=== PATIENT | female | born 1995 | race Caucasian/White ===

== ENCOUNTER 2018-01-27 21:58 | Emergency (ER) | payer OTHER ==
[~2018-01-27] VITALS: Ht 162.6 cm; Wt 48.1 kg
--- NOTE | 2018-01-27 22:06 | ER Report ---
History and Physical Time Seen By MD: 22:05 HPI/ROS CHIEF COMPLAINT: Fever, body aches HISTORY OF PRESENT ILLNESS: 22-year-old female presents to the ER with fever and bodyaches for approximately 36 hours. She notes no rhinitis, she notes a mild headache but no photophobia or stiff neck. She notes nausea but no vomiting. She's had no dysuria. She denies exposure to ill contacts. She's not had a cough. She notes some right upper quadrant and back pain. REVIEW OF SYSTEMS: Respiratory: No cough, no dyspnea. Cardiovascular: No chest pain, no palpitations. Gastrointestinal: No vomiting, no abdominal pain. Musculoskeletal: No back pain. Allergies: Coded Allergies: amoxicillin (Verified Adverse Reaction, Severe, RASH, 01/27/18) Home Meds Active Scripts Oxycodone Hcl/Acetaminophen (PERCOCET 5-325 MG TABLET) 1 Each Tablet, 1 EACH PO Q4-6H Y for pain or cough suppression, #10 Prov:ADINA LAROSE DO 01/27/18 Promethazine Hcl (PROMETHAZINE HCL) 25 Mg Tablet, 25 MG PO Q4H Y for NAUSEA/ VOMITING, #14 TAB Prov:ADINA LAROSE DO 01/27/18 Nitrofurantoin Monohyd/M-Cryst (MACROBID 100 MG CAPSULE) 100 Mg Capsule, 100 MG PO BID for infection, #14 CAPSULE Prov:ADINA LAROSE DO 01/27/18 Reported Medications Fluconazole (DIFLUCAN) 150 Mg Tablet, 150 MG PO QDAY 01/27/18 Metronidazole (FLAGYL) 500 Mg Tablet, 500 MG PO, TAB 01/27/18 Reviewed Nurses Notes: Yes Old Medical Records Reviewed: Yes Constitutional Vital Sign - Last 24 Hours 01/27/18 01/27/18 01/27/18 01/27/18 22:03 22:15 22:30 22:33 Temp 100.6 Pulse 134 117 ??? Resp 16 B/P (MAP) 128/78 107/64 (78) Pulse Ox 96 97 O2 Delivery Room Air 01/27/18 01/27/18 22:45 23:00 Pulse 108 106 B/P (MAP) 115/63 (80) Pulse Ox 94 93 Physical Exam Vital signs stable, moderate tachycardia to 134, fever 100.7, pulse ox normal General Appearance: The patient is alert, has no immediate need for airway protection and no current signs of toxicity. Slightly pale appearing, skin warm and dry HEENT: Pupils equal and round no injection.-Photophobia, TMs normal, oropharynx with mild erythema, no exudate, mild tonsillar hypertrophy Respiratory: Chest is non tender, lungs are clear to auscultation. No wheezing or rails Cardiac: regular rate and rhythm Gastrointestinal: Abdomen is soft and non tender, no masses, bowel sounds normal. Musculoskeletal: Neck: Neck is supple and non tender. No meningismus Extremities have full range of motion and are non tender. Skin: No rashes or lesions. DIFFERENTIAL DIAGNOSIS: After history and physical exam differential diagnosis was considered for adult fever including but not limited to viral syndromes including influenza, urinary tract infection, pneumonia and sepsis. Medical Decision Making Data Points Laboratory Hematology Test 01/27/18 22:15 01/27/18 22:34 Urine HCG, Qualitative Negative (NEGATIVE) Influenza Virus Type A (PCR) Negative (NEGATIVE) Influenza Virus Type B (PCR) Negative (NEGATIVE) Group A Streptococcus Screen Negative (NEGATIVE) Urine Color Yellow Urine Clarity Clear Urine pH 6.0 pH (4.8-9.5) Urine Specific [place] 1.010 Urine Protein Negative mg/dL (NEGATIVE) Urine Glucose (UA) Negative mg/dL (NEGATIVE) Urine Ketones Negative mg/dL (NEGATIVE) Urine Blood Small (NEGATIVE) Urine Nitrite Negative (NEGATIVE) Urine Bilirubin Negative (NEGATIVE) Urine Urobilinogen Negative mg/dL (0.2-1.9) Urine Leukocyte Esterase Trace (NEGATIVE) Urine RBC 1 /HPF (0-2/HPF) Urine WBC 17 /HPF (0-5/HPF) Urine Squamous Epithelial Cells Many /LPF (</=FEW) Urine Bacteria Few /HPF (NONE-FEW) Urine Mucus Few /HPF (NONE-FEW) Chemistry Test 01/27/18 22:15 2 22:34 Urine HCG, Qualitative Negative (NEGATIVE) Influenza Virus Type A (PCR) Negative (NEGATIVE) Influenza Virus Type B (PCR) Negative (NEGATIVE) Group A Streptococcus Screen Negative (NEGATIVE) Urine Color Yellow Urine Clarity Clear Urine pH 6.0 pH (4.8-9.5) Urine Specific [place] 1.010 Urine Protein Negative mg/dL (NEGATIVE) Urine Glucose (UA) Negative mg/dL (NEGATIVE) Urine Ketones Negative mg/dL (NEGATIVE) Urine Blood Small (NEGATIVE) Urine Nitrite Negative (NEGATIVE) Urine Bilirubin Negative (NEGATIVE) Urine Urobilinogen Negative mg/dL (0.2-1.9) Urine Leukocyte Esterase Trace (NEGATIVE) Urine RBC 1 /HPF (0-2/HPF) Urine WBC 17 /HPF (0-5/HPF) Urine Squamous Epithelial Cells Many /LPF (</=FEW) Urine Bacteria Few /HPF (NONE-FEW) Urine Mucus Few /HPF (NONE-FEW) Urinalysis Test 01/27/18 22:15 01/27/18 22:34 Urine HCG, Qualitative Negative (NEGATIVE) Urine Color Yellow Urine Clarity Clear Urine pH 6.0 pH (4.8-9.5) Urine Specific [place] 1.010 Urine Protein Negative mg/dL (NEGATIVE) Urine Glucose (UA) Negative mg/dL (NEGATIVE) Urine Ketones Negative mg/dL (NEGATIVE) Urine Blood Small (NEGATIVE) Urine Nitrite Negative (NEGATIVE) Urine Bilirubin Negative (NEGATIVE) Urine Urobilinogen Negative mg/dL (0.2-1.9) Urine Leukocyte Esterase Trace (NEGATIVE) Urine RBC 1 /HPF (0-2/HPF) Urine WBC 17 /HPF (0-5/HPF) Urine Squamous Epithelial Cells Many /LPF (</=FEW) Urine Bacteria Few /HPF (NONE-FEW) Urine Mucus Few /HPF (NONE-FEW) ED Course/Re-evaluation ED Course Patient was admitted to an examination room. H&P was done. The dental diagnoses was considered. Patient with a fever. She was was evaluated with a rapid strep which was negative, rapid influenza, which is negative. A urinalysis which showed subtle infection. A urinary cultures ordered. She'll be covered with Macrobid for urinary tract infection. She's given Phenergan and Percocet for symptomatically relief so she can sleep and rest. She is advised to continue ibuprofen 600 mg 3 times daily. Patient advised to follow- up with primary care if unimproved in 2-3 days. Decision to Disposition Date: Jan 27, 2018 Decision to Disposition Time: 23:09 Depart Departure Latest Vital Signs Vital Signs Date Time Temp Pulse Resp B/P (MAP) Pulse Ox O2 Delivery O2 Flow Rate FiO2 01/27/18 23:00 106 115/63 (80) 93 01/27/18 22:03 100.6 16 Room Air Impression: Primary Impression: Fever Additional Impressions: Viral syndrome UTI (urinary tract infection) Condition: Improved Disposition: HOME OR SELF-CARE Referrals: DORIE GARCIA MD New Scripts Oxycodone Hcl/Acetaminophen (PERCOCET 5-325 MG TABLET) 1 Each Tablet 1 EACH PO Q4-6H Y for pain or cough suppression, #10 Prov: ADINA LAROSE DO 01/27/18 Promethazine Hcl (PROMETHAZINE HCL) 25 Mg Tablet 25 MG PO Q4H Y for NAUSEA/VOMITING, #14 TAB Prov: ADINA LAROSE DO 01/27/18 Nitrofurantoin Monohyd/M-Cryst (MACROBID 100 MG CAPSULE) 100 Mg Capsule 100 MG PO BID for infection, #14 CAPSULE Prov: ADINA LAROSE DO 01/27/18 Patient Instructions: Urinary Tract Infection in Women (ED), Viral Syndrome (ED ) Additional Instructions: Take ibuprofen 200 mg 3 tablets with food alternating with Tylenol 650 mg to control fever and body aches Drink plenty of fluids Follow-up with your primary care provider if unimproved in 3-5 days Problem Qualifiers Primary Impression: Fever Fever type: unspecified Qualified Codes: R50.9 - Fever, unspecified Additional Impressions: UTI (urinary tract infection) Urinary tract infection type: acute cystitis Hematuria presence: without hematuria Qualified Codes: N30.00 - Acute cystitis without hematuria ADINA LAROSE DO Jan 27, 2018 22:06
[2018-01-27] MEDS ORDERED: METR-1 PO (22:12)
[2018-01-27] MEDS ORDERED: FLUC150T40 PO (22:14)
[2018-01-27] MEDS ORDERED: IBUPROFEN 600 MG TAB PO ONE (22:15)
[2018-01-27] MEDS ORDERED: PROMETHAZINE HCL 25 MG TAB PO ONE (22:15)
[2018-01-27] MEDS ORDERED: ONDANSETRON 4 MG ODT TABDP SL ONE (22:15)
[2018-01-27 23:00] VITALS: BP 115/63
[2018-01-27] MEDS ORDERED: PROMETHAZINE HCL 25 MG TAB TH 2 TAB/BOTTLE PO ONE (23:05)
[2018-01-27] MEDS ORDERED: NITROFURANTOIN MONO 100 MG PO ONE (23:05)
[2018-01-27] MEDS ORDERED: NITR-105 PO (23:14)
[2018-01-27] MEDS ORDERED: PROM-110 PO (23:14)
[2018-01-27] MEDS ORDERED: OXYC-865 PO (23:14)
[2018-01-28] MEDS ORDERED: CIPR-214 PO (20:49)
== END 2018-01-27 23:30 | disposition home or self-care (01) ==
LOC: ER 22:21
DX: N30.00 Acute cystitis without hematuria (principal); B34.9 Viral infection, unspecified
CPT/HCPCS: 81001; 81025; 87081; 87088; 87502; 87880; 99283; Q0169; S0119

== ENCOUNTER 2018-01-28 17:12 | Emergency (ER) | payer OTHER ==
[~2018-01-28 17:12] MED LIST: FLUC150T40 PO; METR-1 PO; NITR-105 PO; OXYC-865 PO; PROM-110 PO
--- NOTE | 2018-01-28 17:20 | ER Report ---
History and Physical Time Seen By MD: 17:19 HPI/ROS CHIEF COMPLAINT: Right lower quadrant pain HISTORY OF PRESENT ILLNESS: This is a 22-year-old female who presents to the emergency department for right lower quadrant pain and overall ill feeling. Was seen in the emergency department last night and sent home with antibiotics for a urinary tract infection. Patient states that throughout today she's had no relief of symptoms and has felt some increased right lower quadrant pain radiating into her back. Patient has had nausea and vomiting. Patient also states that yesterday she had some chest pain and shortness of breath and that has been intermittent throughout yesterday and today. Patient does have aches and chills, no headaches, no rashes. REVIEW OF SYSTEMS: Constitutional: No fever, no chills. Eyes: No discharge. ENT: No sore throat. Cardiovascular: As above. Respiratory: As above. Gastrointestinal: As above. Genitourinary: No hematuria. Musculoskeletal: No back pain. Skin: No rashes. Neurological: No headache. Allergies: Coded Allergies: amoxicillin (Verified Adverse Reaction, Severe, RASH, 01/27/18) Home Meds Active Scripts Ciprofloxacin Hcl (CIPROFLOXACIN HCL) 500 Mg Tablet, 500 MG PO Q12H, #14 TAB Prov:RAMSEY GAMBLE DIABETOLOGIST- 01/28/18 Oxycodone Hcl/Acetaminophen (PERCOCET 5-325 MG TABLET) 1 Each Tablet, 1 EACH PO Q4-6H Y for pain or cough suppression, #10 Prov:ADINA LAROSE DO 01/27/18 Promethazine Hcl (PROMETHAZINE HCL) 25 Mg Tablet, 25 MG PO Q4H Y for NAUSEA/ VOMITING, #14 TAB Prov:ADINA LAROSE DO 01/27/18 Nitrofurantoin Monohyd/M-Cryst (MACROBID 100 MG CAPSULE) 100 Mg Capsule, 100 MG PO BID for infection, #14 CAPSULE Prov:ADINA LAROSE DO 01/27/18 Reported Medications Fluconazole (DIFLUCAN) 150 Mg Tablet, 150 MG PO QDAY 01/27/18 Metronidazole (FLAGYL) 500 Mg Tablet, 500 MG PO, TAB 01/27/18 Past Medical/Surgical History She has a past medical and surgical history of migraines, wears glasses, anxiety , depression, kidney reflux. Reviewed Nurses Notes: Yes Constitutional Vital Sign - Last 24 Hours 01/28/18 01/28/18 01/28/18 01/28/18 17:23 17:27 17:29 17:30 Temp 98.3 Pulse 139 122 Resp 13 20 B/P (MAP) 114/64 (81) 105/68 105/68 (80) Pulse Ox 94 95 01/28/18 01/28/18 01/28/18 01/28/18 17:42 17:57 18:00 18:21 Pulse 120 120 Resp 15 8 B/P (MAP) 97/49 (65) 103/60 (74) Pulse Ox 100 97 01/28/18 01/28/18 01/28/18 01/28/18 18:27 18:32 18:37 18:42 Pulse 117 113 109 107 Resp 22 14 24 15 Pulse Ox 96 96 95 95 01/28/18 01/28/18 01/28/18 01/28/18 18:47 18:52 18:57 19:00 Pulse 110 116 112 Resp 14 11 B/P (MAP) 94/55 (68) Pulse Ox 95 95 93 01/28/18 01/28/18 01/28/18 01/28/18 19:02 19:07 19:12 19:17 Pulse 111 108 111 114 Resp 14 16 9 16 Pulse Ox 94 95 95 97 01/28/18 01/28/18 01/28/18 01/28/18 19:22 19:27 19:30 19:32 Pulse 112 110 122 Resp 23 20 10 B/P (MAP) 98/57 (71) Pulse Ox 96 96 95 01/28/18 01/28/18 01/28/18 01/28/18 19:33 19:34 19:34 19:39 Temp 102.5 Pulse 110 Resp 10 B/P (MAP) 97/60 (72) 97/59 (72) Pulse Ox 96 01/28/18 01/28/18 01/28/18 01/28/18 19:44 19:49 19:54 19:59 Pulse ? 01/28/18 01/28/18 01/28/18 01/28/18 20:04 20:09 20:14 20:19 Pulse 107 105 110 107 Resp 17 35 16 18 Pulse Ox 96 95 96 95 01/28/18 01/28/18 01/28/18 2/28/18 20:24 20:29 20:30 20:34 Pulse 107 109 106 Resp 18 8 11 B/P (MAP) 99/53 (68) Pulse Ox 97 97 96 01/28/18 01/28/18 01/28/18 01/28/18 20:39 20:44 20:49 20:50 Temp 101.2 Pulse 108 111 125 Resp 20 15 Pulse Ox 96 95 01/28/18 01/28/18 20:54 21:00 Temp 98.7 Pulse 101 Resp 10 Pulse Ox 96 Intake and Output 01/28/18 01/28/18 01/29/18 15:00 23:00 07:00 Intake Total 2000 ml Balance 2000 ml Physical Exam General Appearance: The patient is alert, has no immediate need for airway protection and no signs of toxicity, pale, anxious and tearful. Eyes: Pupils equal and round no pallor or injection. ENT, Mouth: Mucous membranes are moist. Respiratory: There are no retractions, lungs are clear to auscultation. Cardiovascular: Pounding, regular rate and rhythm, no murmurs, clicks or rubs. Gastrointestinal: Abdomen is soft and tenderness to McBurney's point with rebound tenderness, no masses, hypoactive bowel sounds. Neurological: Alert and oriented 4. Moving all extremities. No focal neuro deficits. Following all commands. Skin: Warm and dry, no rashes. Musculoskeletal: Neck is supple non tender. Extremities are nontender, nonswollen and have full range of motion. DIFFERENTIAL DIAGNOSIS: After history and physical exam differential diagnosis was considered for abdominal pain in a female including but not limited to ovarian cyst, pelvic inflammatory disease, ovarian torsion, urinary tract infection, and appendicitis. shortness of breath including but not limited to pulmonary infectious process, COPD, asthma, pulmonary embolus and congestive heart failure. Medical Decision Making Data Points Result Diagram: 01/28/18 1740 01/28/18 1740 Laboratory Hematology Test 01/28/18 17:20 01/28/18 17:40 Urine Color Yellow Urine Clarity Cloudy Urine pH 5.0 pH (4.8-9.5) Urine Specific [place] 1.020 Urine Protein 100 mg/dL (NEGATIVE) Urine Glucose (UA) Negative mg/dL (NEGATIVE) Urine Ketones Trace mg/dL (NEGATIVE) Urine Blood Small (NEGATIVE) Urine Nitrite Negative (NEGATIVE) Urine Bilirubin Negative (NEGATIVE) Urine Urobilinogen Negative mg/dL (0.2-1.9) Urine Leukocyte Esterase Negative (NEGATIVE) Urine RBC 13 /HPF (0-2/HPF) Urine WBC 18 /HPF (0-5/HPF) Urine Squamous Epithelial Cells Many /LPF (</=FEW) Urine Transitional Epithelial Cells Moderate /LPF (NONE-FEW) Urine Bacteria Few /HPF (NONE-FEW) Urine Mucus Few /HPF (NONE-FEW) Urine HCG, Qualitative Negative (NEGATIVE) Red Blood Count 4.85 M/uL (4.17-5.56) Mean Corpuscular Volume 86.5 fL (80.0-96.0) Mean Corpuscular Hemoglobin 30.2 pg (26.0-33.0) Mean Corpuscular Hemoglobin Concent 34.9 g/dL (32.0-36.0) Red Cell Distribution Width 12.5 % (11.5-14.5) Mean Platelet Volume 8.7 fL (7.2-11.1) Neutrophils (%) (Auto) 92.4 % (39.4-72.5) Lymphocytes (%) (Auto) 5.1 % (17.6-49.6) Monocytes (%) (Auto) 2.3 % (4.1-12.4) Eosinophils (%) (Auto) 0.0 % (0.4-6.7) Basophils (%) (Auto) 0.2 % (0.3-1.4) Nucleated RBC Relative Count (auto) 0.4 /100WBC Neutrophils # (Auto) 12.1 K/uL (2.0-7.4) Lymphocytes # (Auto) 0.7 K/uL (1.3-3.6) Monocytes # (Auto) 0.3 K/uL (0.3-1.0) Eosinophils # (Auto) 0.0 K/uL (0.0-0.5) Basophils # (Auto) 0.0 K/uL (0.0-0.1) Nucleated RBC Absolute Count (auto) 0.05 K/uL D-Dimer Quantitative (PE/DVT) 2.59 ug/ml (0-0.50) Sodium Level 135 mmol/L (137-145) Potassium Level 3.4 mmol/L (3.5-5.0) Chloride Level 104 mmol/L (98-107) Carbon Dioxide Level 18 mmol/L (22-31) Blood Urea Nitrogen 6 mg/dl (7-18) Creatinine 0.90 mg/dl (0.52-1.04) Glomerular Filtration Rate Calc > 60.0 Random Glucose 120 mg/dl (75-110) Lactate 2.4 mmol/L (0.7-2.1) Calcium Level 8.7 mg/dl (8.4-10.2) Total Bilirubin 0.6 mg/dl (0.2-1.3) Aspartate Amino Transf (AST/SGOT) 16 U/L (0-35) Alanine Aminotransferase (ALT/SGPT) 24 U/L (0-56) Alkaline Phosphatase 52 U/L (0-126) Total Protein 7.4 gm/dl (6.3-8.2) Albumin 3.7 g/dl (3.5-5.0) Chemistry Test 01/28/18 17:20 01/28/18 17:40 Urine Color Yellow Urine Clarity Cloudy Urine pH 5.0 pH (4.8-9.5) Urine Specific [place] 1.020 Urine Protein 100 mg/dL (NEGATIVE) Urine Glucose (UA) Negative mg/dL (NEGATIVE) Urine Ketones Trace mg/dL (NEGATIVE) Urine Blood Small (NEGATIVE) Urine Nitrite Negative (NEGATIVE) Urine Bilirubin Negative (NEGATIVE) Urine Urobilinogen Negative mg/dL (0.2-1.9) Urine Leukocyte Esterase Negative (NEGATIVE) Urine RBC 13 /HPF (0-2/HPF) Urine WBC 18 /HPF (0-5/HPF) Urine Squamous Epithelial Cells Many /LPF (</=FEW) Urine Transitional Epithelial Cells Moderate /LPF (NONE-FEW) Urine Bacteria Few /HPF (NONE-FEW) Urine Mucus Few /HPF (NONE-FEW) Urine HCG, Qualitative Negative (NEGATIVE) White Blood Count 13.1 k/uL (4.5-11.0) Red Blood Count 4.85 M/uL (4.17-5.56) Hemoglobin 14.6 g/dL (12.0-16.0) Hematocrit 41.9 % (34.0-47.0) Mean Corpuscular Volume 86.5 fL (80.0-96.0) Mean Corpuscular Hemoglobin 30.2 pg (26.0-33.0) Mean Corpuscular Hemoglobin Concent 34.9 g/dL (32.0-36.0) Red Cell Distribution Width 12.5 % (11.5-14.5) Platelet Count 175 K/uL (150-450) Mean Platelet Volume 8.7 fL (7.2-11.1) Neutrophils (%) (Auto) 92.4 % (39.4-72.5) Lymphocytes (%) (Auto) 5.1 % (17.6-49.6) Monocytes (%) (Auto) 2.3 % (4.1-12.4) Eosinophils (%) (Auto) 0.0 % (0.4-6.7) Basophils (%) (Auto) 0.2 % (0.3-1.4) Nucleated RBC Relative Count (auto) 0.4 /100WBC Neutrophils # (Auto) 12.1 K/uL (2.0-7.4) Lymphocytes # (Auto) 0.7 K/uL (1.3-3.6) Monocytes # (Auto) 0.3 K/uL (0.3-1.0) Eosinophils # (Auto) 0.0 K/uL (0.0-0.5) Basophils # (Auto) 0.0 K/uL (0.0-0.1) Nucleated RBC Absolute Count (auto) 0.05 K/uL D-Dimer Quantitative (PE/DVT) 2.59 ug/ml (0-0.50) Glomerular Filtration Rate Calc > 60.0 Lactate 2.4 mmol/L (0.7-2.1) Calcium Level 8.7 mg/dl (8.4-10.2) Total Bilirubin 0.6 mg/dl (0.2-1.3) Aspartate Amino Transf (AST/SGOT) 16 U/L (0-35) Alanine Aminotransferase (ALT/SGPT) 24 U/L (0-56) Alkaline Phosphatase 52 U/L (0-126) Total Protein 7.4 gm/dl (6.3-8.2) Albumin 3.7 g/dl (3.5-5.0) Coagulation Test 01/28/18 17:40 D-Dimer Quantitative (PE/DVT) 2.59 ug/ml Urinalysis Test 01/28/18 17:20 Urine Color Yellow Urine Clarity Cloudy Urine pH 5.0 pH (4.8-9.5) Urine Specific [place] 1.020 Urine Protein 100 mg/dL (NEGATIVE) Urine Glucose (UA) Negative mg/dL (NEGATIVE) Urine Ketones Trace mg/dL (NEGATIVE) Urine Blood Small (NEGATIVE) Urine Nitrite Negative (NEGATIVE) Urine Bilirubin Negative (NEGATIVE) Urine Urobilinogen Negative mg/dL (0.2-1.9) Urine Leukocyte Esterase Negative (NEGATIVE) Urine RBC 13 /HPF (0-2/HPF) Urine WBC 18 /HPF (0-5/HPF) Urine Squamous Epithelial Cells Many /LPF (</=FEW) Urine Transitional Epithelial Cells Moderate /LPF (NONE-FEW) Urine Bacteria Few /HPF (NONE-FEW) Urine Mucus Few /HPF (NONE-FEW) Urine HCG, Qualitative Negative (NEGATIVE) EKG/Imaging EKG Interpretation 12 lead EKG: Time of EKG 1733. Rhythm: As tachycardia, ventricular rate 135 BPM. [place]: Right QRS: normal ST segments: No ST depression or elevation identified. Imaging Location: [facility] [place] Patient: Candi Borja : 1995 Visit/Account:[id number] Date of Sevice: 01/28/2018 CT ANGIOGRAM OF THE CHEST WITH INTRAVENOUS CONTRAST, PE PROTOCOL DATE OF EXAM: 01/28/2018 19:46 COMPARISON: None. INDICATION: Elevated d-dimer. TECHNIQUE: Contrast enhanced chest CT performed during the injection of 75 ml of Isovue-370. Three-dimensional (MIP) reconstructions were performed. FINDINGS: There is no pulmonary arterial filling defect. Thyroid: Incompletely imaged. Thoracic inlet: No adenopathy. Heart and great vessels: Heart size is normal. Mediastinum and franky: No adenopathy. Lungs and pleura: No effusion, consolidation, or pneumothorax. Trace dependent atelectasis. Breast and axilla: Glandular tissue suggests a state. Bones and soft tissues: No acute osseous abnormality. Upper abdomen: Unremarkable. IMPRESSION: Negative for pulmonary arterial embolus. One of the following dose optimization techniques was utilized in the performance of this exam: Automated exposure control; adjustment of the mA and/ or kV according to the patient's size; or use of an iterative reconstruction technique. Specific details can be referenced in the facility's radiology CT exam operational policy. Report Dictated By: Alvin Lobo MD at 01/28/2018 8:22 PM Report E-Signed By: Alvin Lobo MD at 01/28/2018 8:33 PM WSN:[id number] Location: [facility] [place] Patient: Candi Borja : 1995 Visit/Account:[id number] Date of Sevice: 01/28/2018 COMPUTED TOMOGRAPHY OF THE Abdomen and Pelvis with CONTRAST INDICATION: Bilateral quadrant pain. TECHNIQUE: Contiguous axial 3.[address] images were obtained through the abdomen and pelvis after the administration of 75 cc Isovue-370. Coronal and sagittal reformatted images were submitted. COMPARISON: None. FINDINGS: Lung bases: Clear Liver and hepatic vasculature: Smooth liver surface. No ascites. Mild fatty infiltration adjacent to the falciform. Gallbladder and bile ducts: Normal Spleen: Normal Pancreas: Normal Adrenals: Normal Kidneys, ureters and bladder: The left kidney enhances normally. There are areas of discontinuous irregular enhancement at the right kidney with moderate adjacent inflammatory stranding. The right ureteral urothelium is also thickened. No stones are identified. Retroperitoneum and aorta: Normal caliber aorta. GI tract, mesentery and peritoneum: No bowel obstruction. No free air. Normal appendix. Small volume of fluid in cul-de-sac may be physiologic. Uterus and adnexa: Grossly unremarkable uterus. Bones and soft tissues: No acute osseous abnormality. IMPRESSION: 1. Striated nephrogram with moderate inflammation adjacent to the right kidney suggests pyelonephritis. 2. Normal appendix. One of the following dose optimization techniques was utilized in the performance of this exam: Automated exposure control; adjustment of the mA and/ or kV according to the patient's size; or use of an iterative reconstruction technique. Specific details can be referenced in the facility's radiology CT exam operational policy. Report Dictated By: Alvin Lobo MD at 01/28/2018 6:34 PM Report E-Signed By: Alvin Lobo MD at 01/28/2018 6:50 PM WSN:[id number] ED Course/Re-evaluation Clinical Indication for ER IV: Hydration, IV Access ED Course The patient was admitted to room. History and physical were obtained. Differential diagnoses were considered. An IV was started. A CBC, CMP, lactate were obtained. A UA was obtained. A 1 L normal saline bolus 2 was given. Patient was given 4 mg IV Zofran. Lab Study showing a leukocytosis. Patient was also given 1 g of Tylenol. Chemistry showing a sodium of 135, potassium 3.4. Mildly elevated Lactate at 2.4, likely from the pyelonephritis. D-dimer 2.59. Urine with 18 wbc's, small amount of blood in the urine. EKG showing normal sinus rhythm. Patient had rebound tenderness and right lower quadrant pain at McBurney's point. I did talk to the patient about this and I was concerned that she had appendicitis and that a CT scan of her abdomen and pelvis would be appropriate at this time. Patient was in agreement with this. A CT abdomen and pelvis showing no acute appendicitis however she does have a right sided pyelonephritis. I did review these results with the patient and I also expressed my concern that with her chest pain and shortness of breath and taking oral contraceptives, elevated D-Dimer too I am concerned she may have a pulmonary emboli. Patient was also in agreement with a CTA of the chest. CTA was negative for a PE. She was given 2 g of Rocephin in the ED. Oral antibiotics were changed from Macrobid to Cipro. At the time of discharge the patient's heart rate came down from the 150s down to mid 90s. Patient also stated that she is feeling better. Patient was instructed to follow-up in no more than 2 days with either the health or a newly established primary care provider for reevaluation. Patient was also instructed to come back to the emergency department for any other concerns or worsening symptoms. Decision to Disposition Date: Jan 28, 2018 Decision to Disposition Time: 20:52 Depart Departure Latest Vital Signs Vital Signs Date Time Temp Pulse Resp B/P (MAP) Pulse Ox O2 Delivery O2 Flow Rate FiO2 01/28/18 21:00 98.7 01/28/18 20:54 101 10 96 01/28/18 20:30 99/53 (68) Impression: Primary Impression: Pyelonephritis Condition: Improved Disposition: HOME OR SELF-CARE Referrals: [facility] New Scripts Ciprofloxacin Hcl (CIPROFLOXACIN HCL) 500 Mg Tablet 500 MG PO Q12H, #14 TAB Prov: RAMSEY GAMBLE DIABETOLOGIST-BC 01/28/18 Patient Instructions: Kidney Infection (ED) Additional Instructions: Drink plenty of fluids. Get plenty of rest. Stop the Macrobid and start the Cipro. Follow up with either [facility] in 2 days or a local provider to ensure you are improving. Take up to 1000mg of Tylenol up to 4 times a day for the next 2 days. May return to the ED for any other concerns or worsening symptoms. MD Consult Note: RAMSEY Martin DIABETOLOGIST-BC Jan 28, 2018 17:19
[2018-01-28] MEDS ORDERED: ONDANSETRON 4 MG/2 ML VIAL IVP ONE (17:30)
[2018-01-28] MEDS ORDERED: NS(*) 0.9% 1000 ML BAG 1,000 ML IV ONE ×2 (17:30→19:05)
[2018-01-28] MEDS ORDERED: IOPAMIDOL 76% 75 ML INFUS BTL 75 ML ONE ×2 (17:42→19:20)
[2018-01-28 17:49] LABS: PLATELET COUNT, AUTOMATED 175 K/uL (150-450)
--- NOTE | 2018-01-28 18:54 | RADIOLOGY IMAGING REPORT ---
FAC[place] [facility] [place]IENT NAME: Candi Borja : 1995 MR: [id number] V: [id number] EXAM DATE: ORDERING PHYSICIAN: RAMSEY GAMBLE TECHNOLOGIST: Location: Patient: Candi Borja : 1995 Visit/Account:[id number] Date of Sevice: 01/28/2018 COMPUTED TOMOGRAPHY OF THE Abdomen and Pelvis with CONTRAST INDICATION: Bilateral quadrant pain. TECHNIQUE: Contiguous axial 3.[address] images were obtained through the abdomen and pelvis after the administration of 75 cc Isovue-370. Coronal and sagittal reformatted images were submitted. COMPARISON: None. FINDINGS: Lung bases: Clear Liver and hepatic vasculature: Smooth liver surface. No ascites. Mild fatty infiltration adjacent to the falciform. Gallbladder and bile ducts: Normal Spleen: Normal Pancreas: Normal Adrenals: Normal Kidneys, ureters and bladder: The left kidney enhances normally. There are areas of discontinuous ir regular enhancement at the right kidney with moderate adjacent inflammatory stranding. The right uret eral urothelium is also thickened. No stones are identified. Retroperitoneum and aorta: Normal caliber aorta. GI tract, mesentery and peritoneum: No bowel obstruction. No free air. Normal appendix. Small volume of fluid in cul-de-sac may be physiologic. Uterus and adnexa: Grossly unremarkable uterus. Bones and soft tissues: No acute osseous abnormality. IMPRESSION: 1. Striated nephrogram with moderate inflammation adjacent to the right kidney suggests pyelonephriti s. 2. Normal appendix. One of the following dose optimization techniques was utilized in the performance of this exam: Autom ated exposure control; adjustment of the mA and/or kV according to the patient's size; or use of an i terative reconstruction technique. Specific details can be referenced in the facility's radiology C T exam operational policy. Report Dictated By: Alvin Lboo MD at 01/28/2018 6:34 PM Report E-Signed By: Alvin Lobo MD at 01/28/2018 6:50 PM WSN:[id number]
[2018-01-28] MEDS ORDERED: cefTRIAXone 2 GM VIAL IVP ONE (19:10)
[2018-01-28] MEDS ORDERED: NS 0.9% 150 ML BAG 150 ML ONE (19:20)
[2018-01-28 20:30] VITALS: BP 99/53
--- NOTE | 2018-01-28 20:37 | RADIOLOGY IMAGING REPORT ---
FACILITY: [facility] - [place] PATIENT NAME: Candi Borja : 1995 MR: [id number] V: [id number] EXAM DATE: ORDERING PHYSICIAN: RAMSEY GAMBLE TECHNOLOGIST: Location: [facility] [place] Patient: Candi Borja : 1995 Visit/Account:[id number] Date of Sevice: 01/28/2018 CT ANGIOGRAM OF THE CHEST WITH INTRAVENOUS CONTRAST, PE PROTOCOL DATE OF EXAM: 01/28/2018 19:46 COMPARISON: None. INDICATION: Elevated d-dimer. TECHNIQUE: Contrast enhanced chest CT performed during the injection of 75 ml of Isovue-370. Three-d imensional (MIP) reconstructions were performed. FINDINGS: There is no pulmonary arterial filling defect. Thyroid: Incompletely imaged. Thoracic inlet: No adenopathy. Heart and great vessels: Heart size is normal. Mediastinum and franky: No adenopathy. Lungs and pleura: No effusion, consolidation, or pneumothorax. Trace dependent atelectasis. Breast and axilla: Glandular tissue suggests a state. Bones and soft tissues: No acute osseous abnormality. Upper abdomen: Unremarkable. IMPRESSION: Negative for pulmonary arterial embolus. One of the following dose optimization techniques was utilized in the performance of this exam: Autom ated exposure control; adjustment of the mA and/or kV according to the patient's size; or use of an i terative reconstruction technique. Specific details can be referenced in the facility's radiology C T exam operational policy. Report Dictated By: Alvin Lobo MD at 01/28/2018 8:22 PM Report E-Signed By: Alvin Lobo MD at 01/28/2018 8:33 PM WSN:[id number]
[2018-01-28] MEDS ORDERED: ACETAMINOPHEN 500 MG TAB PO ONE (20:40)
[2018-01-28] MEDS ORDERED: CIPR-214 PO (20:49)
--- NOTE | 2018-01-29 08:54 | EKG ---
FACILITY: [facility] - [place], [place] PATIENT NAME: JOSH PÉREZ : [id number] MR: [id number] V: [id number] EXAM DATE: ORDERING PHYSICIAN: RAMSEY GAMBLE TECHNOLOGIST: CHAGO Neely Reason : TACHY Blood Pressure : / mmHG Vent. Rate : 135 BPM Atrial Rate : 135 BPM P-R Int : 130 ms QRS Dur : 070 ms QT Int : 372 ms P-R-T Axes : 078 107 073 degrees QTc Int : 558 ms Sinus tachycardia Rightward axis Nonspecific T wave abnormality Abnormal ECG No previous ECGs available Confirmed by EVERARDO VILLAFANA ([id number]) on 01/29/2018 5:42:40 PM Referred By: RAMSEY Confirmed By:EVERARDO VILLAFANA
== END 2018-01-28 21:04 | disposition home or self-care (01) ==
LOC: ER 17:42
DX: N12 Tubulo-interstitial nephritis, not specified as acute or chronic (principal)
CPT/HCPCS: 71275; 74177; 81001; 81025; 83605; 85025; 85379; 93005; 96361; 96374; 96375; 99284; J0696; J2405; J7030; Q9967; 82040; 82247; 82310; 82374; 82435; 82565; 82947; 84075; 84132; 84155; 84295; 84450; 84460; 84520

== ENCOUNTER → 2018-03-19 | Outpatient (REF) | payer OTHER ==
[~2018-03-19] MED LIST changes: +CIPR-214 PO
== END ==
LOC: ZZSENDIN 15:35
PROVIDERS: ATTEND Physician Assistant
DX: R30.0 Dysuria (principal)
CPT/HCPCS: 81001; 87088

== ENCOUNTER 2019-05-10 21:11 | Emergency (ER) | payer OTHER ==
--- NOTE | 2019-05-10 21:25 | ER Report ---
History and Physical Time Seen By MD: 21:25 HPI/ROS CHIEF COMPLAINT: abdominal pain HISTORY OF PRESENT ILLNESS: This is a 24 year old female. She has had abdominal pain lower abdomen in the suprapubic area. She has dysuria as well. Has had norm al bowels. Some discharge from the vaginal area which is normal for her. No bleeding. LMP was about 2 months ago. No shortness of breath. No back pain. Has had some nausea, but no vomiting. Allergies: Coded Allergies: amoxicillin (Verified Adverse Reaction, Severe, RASH, 01/27/18) Home Meds Active Scripts Phenazopyridine Hcl (PHENAZOPYRIDINE HCL) 200 Mg Tablet, 200 MG PO TID, #10 TAB 0 Refills Prov:MATT BARLOW MD 05/10/19 Sulfamethoxazole/Trimet 800-160 Mg Tab (BACTRIM DS TABLET) 1 Each Tablet, 1 TAB PO Q12H, #14 TAB 0 Refills Prov:MATT BARLOW MD 05/10/19 Discontinued Reported Medications Fluconazole (DIFLUCAN) 150 Mg Tablet, 150 MG PO QDAY 01/27/18 Metronidazole (FLAGYL) 500 Mg Tablet, 500 MG PO, TAB 01/27/18 Discontinued Scripts Ciprofloxacin 500 Mg Tab (CIPROFLOXACIN 500 MG TAB) 500 Mg Tablet, 500 MG PO Q12H, #14 TAB Prov:RAMSEY GAMBLE TUBE TESTER- 01/28/18 Oxycodone Hcl/Acetaminophen (PERCOCET 5-325 MG TABLET) 1 Each Tablet, 1 EACH PO Q4-6H PRN for pain or cough suppression, #10 Prov:ADINA LAROSE DO 01/27/18 Promethazine Hcl (PROMETHAZINE HCL) 25 Mg Tablet, 25 MG PO Q4H PRN for NAUSEA/ VOMITING, #14 TAB Prov:ADINA LAROSE DO 01/27/18 Nitrofurantoin Monohyd/M-Cryst (MACROBID 100 MG CAPSULE) 100 Mg Capsule, 100 MG PO BID for infection, #14 CAPSULE Prov:ADINA LAROSE DO 01/27/18 Reviewed Nurses Notes: Yes Constitutional Vital Sign - Last 24 Hours 05/10/19 05/10/19 05/10/19 05/10/19 21:19 21:23 21:26 21:30 Temp 97.9 Pulse 89 86 Resp 20 B/P (MAP) 132/80 132/80 (97) 108/70 (83) Pulse Ox 96 97 O2 Delivery Room Air 05/10/19 05/10/19 05/10/19 05/10/19 21:41 21:56 22:05 22:11 Pulse 98 92 86 B/P (MAP) 116/78 (91) Pulse Ox 83 96 94 05/10/19 05/10/19 05/10/19 05/10/19 22:26 22:33 22:41 22:56 Pulse 86 85 83 B/P (MAP) 107/67 (80) Pulse Ox 95 95 97 05/10/19 23:00 B/P (MAP) 103/72 (82) Physical Exam General Appearance: The patient is alert, has no immediate need for airway protection and no current signs of toxicity. Eyes: Pupils equal and round no injection. ENT: Normal oral mucosa. Moist mucous membranes. Neck: Neck is supple and non tender. Respiratory: Chest is non tender, lungs are clear to auscultation. Cardiac: regular rate and rhythm Gastrointestinal: Abdomen is soft, tender in suprapubic area. Musculoskeletal: Extremities have full range of motion. Skin: No rashes or lesions. DIFFERENTIAL DIAGNOSIS: After history and physical exam differential diagnosis was considered for abdominal pain in a female including but not limited to ovarian cyst, pelvic inflammatory disease, ovarian torsion, urinary tract infection, and appendicitis. Medical Decision Making Data Points Result Diagram: 05/10/19223305/10/192233 Laboratory Hematology Test 05/10/19 22:34 05/10/19 23:11 Red Blood Count 5.00 M/uL (4.17-5.56) Mean Corpuscular Volume 86.2 fL (80.0-96.0) Mean Corpuscular Hemoglobin 30.3 pg (26.0-33.0) Mean Corpuscular Hemoglobin Concent 35.1 g/dL (32.0-36.0) Red Cell Distribution Width 12.4 % (11.5-14.5) Mean Platelet Volume 8.2 fL (7.2-11.1) Neutrophils (%) (Auto) 66.1 % (39.4-72.5) Lymphocytes (%) (Auto) 25.4 % (17.6-49.6) Monocytes (%) (Auto) 5.2 % (4.1-12.4) Eosinophils (%) (Auto) 2.9 % (0.4-6.7) Basophils (%) (Auto) 0.4 % (0.3-1.4) Nucleated RBC Relative Count (auto) 0.2 /100WBC Neutrophils # (Auto) 5.8 K/uL (2.0-7.4) Lymphocytes # (Auto) 2.2 K/uL (1.3-3.6) Monocytes # (Auto) 0.5 K/uL (0.3-1.0) Eosinophils # (Auto) 0.3 K/uL (0.0-0.5) Basophils # (Auto) 0.0 K/uL (0.0-0.1) Nucleated RBC Absolute Count (auto) 0.02 K/uL Sodium Level 142 mmol/L (137-145) Potassium Level 3.9 mmol/L (3.5-5.0) Chloride Level 108 mmol/L (98-107) Carbon Dioxide Level 24 mmol/L (22-31) Blood Urea Nitrogen 11 mg/dl (7-18) Creatinine 0.70 mg/dl (0.52-1.04) Glomerular Filtration Rate Calc > 60.0 Random Glucose 108 mg/dl (75-110) Calcium Level 9.2 mg/dl (8.4-10.2) Total Bilirubin 0.3 mg/dl (0.2-1.3) Aspartate Amino Transf (AST/SGOT) 18 U/L (0-35) Alanine Aminotransferase (ALT/SGPT) 24 U/L (0-56) Alkaline Phosphatase 42 U/L (0-126) Total Protein 7.7 g/dl (6.3-8.2) Albumin 4.1 g/dl (3.5-5.0) Amylase Level 94 U/L (0-110) Lipase 128 U/L (23-300) Human Chorionic Gonadotropin, Qual Negative (NEGATIVE) Urine Color Colorless Urine Clarity Clear Urine pH 6.0 pH (4.8-9.5) Urine Specific [place] 1.005 Urine Protein Negative mg/dL (NEGATIVE) Urine Glucose (UA) Negative mg/dL (NEGATIVE) Urine Ketones Negative mg/dL (NEGATIVE) Urine Blood Moderate (NEGATIVE) Urine Nitrite Negative (NEGATIVE) Urine Bilirubin Negative (NEGATIVE) Urine Urobilinogen Negative mg/dL (0.2-1.9) Urine Leukocyte Esterase Small (NEGATIVE) Urine RBC 1 /HPF (0-2/HPF) Urine WBC 19 /HPF (0-5/HPF) Urine Squamous Epithelial Cells Few /LPF (</=FEW) Urine Bacteria Few /HPF (NONE-FEW) Urine Mucus None /HPF (NONE-FEW) Chemistry Test 05/10/19 22:34 05/10/19 23:11 White Blood Count 8.8 k/uL (4.5-11.0) Red Blood Count 5.00 M/uL (4.17-5.56) Hemoglobin 15.2 g/dL (12.0-16.0) Hematocrit 43.2 % (34.0-47.0) Mean Corpuscular Volume 86.2 fL (80.0-96.0) Mean Corpuscular Hemoglobin 30.3 pg (26.0-33.0) Mean Corpuscular Hemoglobin Concent 35.1 g/dL (32.0-36.0) Red Cell Distribution Width 12.4 % (11.5-14.5) Platelet Count 230 K/uL (150-450) Mean Platelet Volume 8.2 fL (7.2-11.1) Neutrophils (%) (Auto) 66.1 % (39.4-72.5) Lymphocytes (%) (Auto) 25.4 % (17.6-49.6) Monocytes (%) (Auto) 5.2 % (4.1-12.4) Eosinophils (%) (Auto) 2.9 % (0.4-6.7) Basophils (%) (Auto) 0.4 % (0.3-1.4) Nucleated RBC Relative Count (auto) 0.2 /100WBC Neutrophils # (Auto) 5.8 K/uL (2.0-7.4) Lymphocytes # (Auto) 2.2 K/uL (1.3-3.6) Monocytes # (Auto) 0.5 K/uL (0.3-1.0) Eosinophils # (Auto) 0.3 K/uL (0.0-0.5) Basophils # (Auto) 0.0 K/uL (0.0-0.1) Nucleated RBC Absolute Count (auto) 0.02 K/uL Glomerular Filtration Rate Calc > 60.0 Calcium Level 9.2 mg/dl (8.4-10.2) Total Bilirubin 0.3 mg/dl (0.2-1.3) Aspartate Amino Transf (AST/SGOT) 18 U/L (0-35) Alanine Aminotransferase (ALT/SGPT) 24 U/L (0-56) Alkaline Phosphatase 42 U/L (0-126) Total Protein 7.7 g/dl (6.3-8.2) Albumin 4.1 g/dl (3.5-5.0) Amylase Level 94 U/L (0-110) Lipase 128 U/L (23-300) Human Chorionic Gonadotropin, Qual Negative (NEGATIVE) Urine Color Colorless Urine Clarity Clear Urine pH 6.0 pH (4.8-9.5) Urine Specific [place] 1.005 Urine Protein Negative mg/dL (NEGATIVE) Urine Glucose (UA) Negative mg/dL (NEGATIVE) Urine Ketones Negative mg/dL (NEGATIVE) Urine Blood Moderate (NEGATIVE) Urine Nitrite Negative (NEGATIVE) Urine Bilirubin Negative (NEGATIVE) Urine Urobilinogen Negative mg/dL (0.2-1.9) Urine Leukocyte Esterase Small (NEGATIVE) Urine RBC 1 /HPF (0-2/HPF) Urine WBC 19 /HPF (0-5/HPF) Urine Squamous Epithelial Cells Few /LPF (</=FEW) Urine Bacteria Few /HPF (NONE-FEW) Urine Mucus None /HPF (NONE-FEW) Urinalysis Test 05/10/19 23:11 Urine Color Colorless Urine Clarity Clear Urine pH 6.0 pH (4.8-9.5) Urine Specific [place] 1.005 Urine Protein Negative mg/dL (NEGATIVE) Urine Glucose (UA) Negative mg/dL (NEGATIVE) Urine Ketones Negative mg/dL (NEGATIVE) Urine Blood Moderate (NEGATIVE) Urine Nitrite Negative (NEGATIVE) Urine Bilirubin Negative (NEGATIVE) Urine Urobilinogen Negative mg/dL (0.2-1.9) Urine Leukocyte Esterase Small (NEGATIVE) Urine RBC 1 /HPF (0-2/HPF) Urine WBC 19 /HPF (0-5/HPF) Urine Squamous Epithelial Cells Few /LPF (</=FEW) Urine Bacteria Few /HPF (NONE-FEW) Urine Mucus None /HPF (NONE-FEW) ED Course/Re-evaluation Clinical Indication for ER IV: Hydration, IV Access ED Course Labs are normal other than urinalysis shows evidence of urinary tract infection. We will go ahead and do a urine culture. We were going to do CT scan however the patient preferred not to do this. Based on findings of the urine we will go ahead and discharge her with treatment for urinary tract infection with Bactrim and Pyridium. She will use Tylenol and ibuprofen as needed for pain. Recommended that if symptoms do not improve she come back for reevaluation and consideration for further imaging such as CT scan or ultrasound. Decision to Disposition Date: May 10, 2019 Decision to Disposition Time: 23:39 Depart Departure Latest Vital Signs Vital Signs Date Time Temp Pulse Resp B/P (MAP) Pulse Ox O2 Delivery O2 Flow Rate FiO2 05/10/19 23:00 103/72 (82) 05/10/19 22:56 83 97 05/10/19 21:19 97.9 20 Room Air Impression: Primary Impression: UTI (urinary tract infection) Condition: Improved Disposition: HOME OR SELF-CARE New Scripts Phenazopyridine Hcl (PHENAZOPYRIDINE HCL) 200 Mg Tablet 200 MG PO TID, #10 TAB 0 Refills Prov: MATT BARLOW MD 05/10/19 Sulfamethoxazole/Trimet 800-160 Mg Tab (BACTRIM DS TABLET) 1 Each Tablet 1 TAB PO Q12H, #14 TAB 0 Refills Prov: MATT BARLOW MD 05/10/19 Patient Instructions: Urinary Tract Infection in Women (ED) Additional Instructions: Take Bactrim DS twice a day for 7 days. Take Pyridium every 8 hours as needed for urinary pain. Increase fluid intake for the next few days. Use Tylenol or Ibuprofen as needed for pain. Problem Qualifiers Primary Impression: UTI (urinary tract infection) Urinary tract infection type: acute cystitis Hematuria presence: without hematuria Qualified Codes: N30.00 - Acute cystitis without hematuria MATT BARLOW MD May 10, 2019 21:25
[2019-05-10] MEDS ORDERED: NS(*) 0.9% 1000 ML BAG 1,000 ML IV ONE (22:10)
[2019-05-10 22:42] LABS: PLATELET COUNT, AUTOMATED 230 K/uL (150-450)
[2019-05-10 23:00] VITALS: BP 103/72
[2019-05-10] MEDS ORDERED: IOPAMIDOL 76% 100 ML INFUS BTL 0 ML ONE (23:24)
[2019-05-10] MEDS ORDERED: PHENAZOPYRIDINE 200 MG TAB TH 2 TAB/BOTTLE PO ONE (23:40)
[2019-05-10] MEDS ORDERED: TRIMETHOPRIM/SULFA 160-800 TH 2 TAB/BOTTLE PO ONE (23:40)
[2019-05-10] MEDS ORDERED: PHEN200T32 PO (23:41)
[2019-05-10] MEDS ORDERED: SULF-198 PO (23:41)
== END 2019-05-10 23:47 | disposition home or self-care (01) ==
LOC: ER 21:31
DX: N30.00 Acute cystitis without hematuria (principal)
CPT/HCPCS: 81001; 82150; 83690; 84703; 85025; 96360; 99283; J7030; 82040; 82247; 82310; 82374; 82435; 82565; 82947; 84075; 84132; 84155; 84295; 84450; 84460; 84520; 87077; 87088; 87186; Q9967